=== PATIENT | female | born 1990 | race Two or more races ===

== ENCOUNTER 2025-06-30 06:00 | Day surgery (SDC) | payer OTHER ==
[2025-06-30] MEDS ORDERED: CEFAZOLIN SODIUM 1,000 MG VIAL ONE ×2 (07:18→07:25)
[2025-06-30] MEDS ORDERED: POVIDONE-IODINE 118 ML BOTT TOP ONE (07:25)
[2025-06-30] MEDS ORDERED: LIDOCAINE HCL 1%/EPINEPHRINE 20ML VIAL IJ ONE (07:25)
== END 2025-06-30 13:15 | disposition home or self-care (01) ==
LOC: CIR.AMB 06:00
PROVIDERS: ATTEND Obstetrics & Gynecology
DX: N88.1 Old laceration of cervix uteri (principal)